=== PATIENT | female | born 1995 | race Caucasian/White ===

== ENCOUNTER 2024-09-25 09:09 | Outpatient (CLI) | payer OTHER ==
[~2024-09-25] VITALS: Ht 154.9 cm; Wt 87.8 kg
[2024-09-25 09:34] VITALS: BP 142/94
[2024-09-25 09:45] VITALS: BP 144/82
[2024-09-25 09:55] VITALS: BP 145/81
[2024-09-25 10:05] VITALS: BP 140/72
[2024-09-25 10:15] VITALS: BP 128/73
[2024-09-25 11:31] LABS: HEMATOCRIT 39.4 % (36.0-47.0); HEMOGLOBIN 13.3 g/dl (12.0-15.5); MEAN CORPUSCULAR HEMOGLOBIN 28.4 pg (27.0-33.0); MEAN CORPUSCULAR HGB CONC 33.8 g/dl (32.0-36.5); PLATELET COUNT, AUTOMATED 330 10^3/uL (150-450); RED BLOOD COUNT 4.69 10^6/uL (4.00-5.40); WHITE BLOOD COUNT 13.8 10^3/uL (4.0-10.0)
[2024-09-25 11:50] LABS: CREATININE,RANDOM URINE 103.5 MG/DL
[2024-09-25 12:02] LABS: URIC ACID 5.2 MG/DL (3.1-7.8)
[2024-09-25 12:05] LABS: LDH LACTATE DEHYDROGENASE 171 U/L (120-246)
[2024-09-25 12:06] LABS: ALT/SGPT 13 U/L (7.0-40); AST/SGOT 10 U/L (<34); BILIRUBIN,TOTAL 0.3 MG/DL (0.3-1.2); CREATININE FOR GFR 0.69 MG/DL (0.55-1.30); GLOMERULAR FILTRATION RATE > 60.0 (>60)
== END 2024-09-25 14:30 | disposition home or self-care (01) ==
LOC: M LDO 09:09
PROVIDERS: ATTEND Advanced Practice Midwife
DX: O47.1 False labor at or after 37 completed weeks of gestation (principal); O09.33 Supervision of pregnancy with insufficient antenatal care, third trimester; O36.0139 Maternal care for anti-D [Rh] antibodies, third trimester, other fetus; O99.343 Other mental disorders complicating pregnancy, third trimester; F43.20 Adjustment disorder, unspecified; Z3A.40 40 weeks gestation of pregnancy
CPT/HCPCS: 36415; 59025; 82247; 82570; 83615; 84156; 84450; 84460; 84550; 85027; 87081; G0463

== ENCOUNTER 2024-10-01 07:08 | Inpatient (IN) | payer OTHER ==
[~2024-10-01] VITALS: Ht 154.9 cm; Wt 88.3 kg
[2024-10-01] VITALS (17 sets, daily range): BP systolic 122–143; BP diastolic 63–88; O2SAT 98
[2024-10-01 09:18] LABS: HEMATOCRIT 37.3 % (36.0-47.0); HEMOGLOBIN 12.4 g/dl (12.0-15.5); MEAN CORPUSCULAR HEMOGLOBIN 28.2 pg (27.0-33.0); MEAN CORPUSCULAR HGB CONC 33.2 g/dl (32.0-36.5); PLATELET COUNT, AUTOMATED 312 10^3/uL (150-450); RED BLOOD COUNT 4.39 10^6/uL (4.00-5.40); WHITE BLOOD COUNT 12.9 10^3/uL (4.0-10.0)
[2024-10-01] MEDS ORDERED: LIDOCAINE 1% MDV 20ML VIAL INFIL PRN (09:50)
[2024-10-01] MEDS ORDERED: METHYLERGONOVINE MALEATE 0.2MG/ML 1ML VIAL IM PRN (09:50)
[2024-10-01] MEDS ORDERED: OXYTOCIN DRIP 30 UNITS in IV 1 EA IV PRN (09:50)
[2024-10-01] MEDS ORDERED: CARBOPROST TROMETHAMINE 250 MCG/ML AMP IM PRN (09:50)
[2024-10-01] MEDS ORDERED: TRANEXAMIC ACID INJection 1,000 MG in NS 100 ML IV PRN (09:50)
[2024-10-01 10:19] LABS: HEPATITIS C VIRUS ABY INDEX 0.13 INDEX (<0.8)
[2024-10-01] MEDS: LR 1,000 ML IV SCH (10:52)
[2024-10-01] MEDS: CLINDAMYCIN 900 MG in IV 1 EA IV SCH (10:53)
[2024-10-01] MEDS: OXYTOCIN DRIP 30 UNITS in IV 1 EA IV SCH ×2 (10:54→20:28)
[2024-10-01 12:33] LABS: HIV 1&2 SCREEN NEGATIVE (NEGATIVE)
[2024-10-01] MEDS: BUTORPHANOL 2 MG/ML 1ML VIAL IV ONE (14:56)
[2024-10-01] MEDS: PROMETHAZINE 25MG/ML 1ML VIAL IV ONE (14:56)
[2024-10-01 17:55] LABS: CORD GAS ABE A -7.1; CORD GAS HCO3 A 23.4 MMOL/L; CORD GAS O2 SAT A 48.3 %; CORD GAS PCO2 A 66.2 mmHg; CORD GAS PH A 7.167 UNITS; CORD GAS SBC A 17.6 MMOL/L; CORD GAS TCO2 A 25.5 MMOL/L
[2024-10-01 17:57] LABS: CORD GAS ABE V -6.3; CORD GAS HCO3 V 24.3 MMOL/L; CORD GAS O2 SAT V 37.7 %; CORD GAS PCO2 V 67.6 mmHg; CORD GAS PH V 7.174 UNITS; CORD GAS PO2 V 19.6 mmHg; CORD GAS SBC V 17.8 MMOL/L; CORD GAS TCO2 V 26.4 MMOL/L
[2024-10-01] MEDS ORDERED: ACETAMINOPHEN 500 MG TAB PO PRN (18:00)
[2024-10-01] MEDS ORDERED: LR 1,000 ML IV SCH (18:00)
[2024-10-01] MEDS ORDERED: IBUPROFEN 800 MG TAB PO PRN (18:00)
[2024-10-01] MEDS ORDERED: ONDANSETRON 4MG 2ML VIAL IV PRN (18:00)
[2024-10-01] MEDS ORDERED: DIBUCAINE 1% OINTMENT 30GM TOP PRN (18:00)
[2024-10-01] MEDS: LACTATED RINGER'S 1000 ML IV STA (20:28)
[2024-10-02 05:41] VITALS: BP 125/73; O2SAT 98
[2024-10-02] MEDS: PRENATAL VITAMINS CHEWABLE TABLET PO SCH (08:00)
[2024-10-02] MEDS: ANUSOL HC CREAM 30GM TOP PRN (11:30)
[2024-10-02] MEDS: IBUPROFEN 600MG TAB PO PRN (11:32)
[2024-10-02] MEDS: RHOGAM 300MCG (1500IU) INJ IM SCH (11:42)
[2024-10-02 18:00] VITALS: BP 135/85; O2SAT 98
[2024-10-02] MEDS: DOCUSATE SODIUM 100MG CAPSULE PO PRN (20:42)
[2024-10-02] MEDS: ACETAMINOPHEN 325 MG TAB PO PRN (22:10)
[2024-10-03 05:57] VITALS: BP 117/70; O2SAT 98
[2024-10-03] MEDS: BOOSTRIX VACCINE (TETANUS/DIPHTH/ACEL. PERTUSSIS) 0.5ML SYR IM.IMMUN ONE (08:17)
[2024-10-03] MEDS: MEASLES,MUMPS,RUBELLA VACCINE INJ (MMR-II) SC.IMMUN ONE (09:00)
[2024-10-03] MEDS ORDERED: IBUP80TA PO (09:36)
[2024-10-03] MEDS ORDERED: ACET-683 PO (09:36)
== END 2024-10-03 13:30 | disposition home or self-care (01) | DRG 560 ==
LOC: M LDI 07:08 → M OBS 19:57
PROVIDERS: ADMIT Obstetrics & Gynecology; ATTEND Obstetrics & Gynecology
PROC: 10E0XZZ Delivery of Products of Conception, External Approach (ICD-10-PCS; principal; 2024-10-01)
PROC: 3E033VJ Introduction of Other Hormone into Peripheral Vein, Percutaneous Approach (ICD-10-PCS; 2024-10-01)
DX: O48.0 Post-term pregnancy (principal); O99.824 Streptococcus B carrier state complicating childbirth; Z3A.40 40 weeks gestation of pregnancy; Z37.0 Single live birth